=== PATIENT | male | born 2000 | race Caucasian/White ===

== ENCOUNTER 2022-02-24 21:49 | Emergency (ER) | payer OTHER, SELFPAY ==
--- NOTE | 2022-02-24 22:03 | CTR_ITS ---
PROCEDURE INFORMATION: Exam: CT Abdomen And Pelvis Without Contrast Exam date and time: 02/24/2022 10:15 PM Age: 21 years old Clinical indication: Other: Periumbilical pain with bleeding; Additional info: Abd pain around the umbilicus, with scant bleeding TECHNIQUE: Imaging protocol: Computed tomography of the abdomen and pelvis without contrast. Radiation optimization: All CT scans at this facility use at least one of these dose optimization techniques: automated exposure control; mA and/or kV adjustment per patient size (includes targeted exams where dose is matched to clinical indication); or iterative reconstruction. COMPARISON: No relevant prior studies available. RADIATION DOSE METRICS: Total DLP (mGy-cm): 1769.03 FINDINGS: Limitations: The absence of intravenous contrast lessens the sensitivity of this study for solid organ abnormalities. Lungs: Lung bases are clear. Liver: There is no focal abnormality within the liver. Gallbladder and bile ducts: The gallbladder is normal. Pancreas: The pancreas is normal. Spleen: The spleen is normal. Adrenal glands: Normal. No mass. Kidneys and ureters: The kidneys are normal. There is no evidence of hydronephrosis. There is no evidence of renal or ureteral calcifications. Stomach and bowel: There is no evidence of colitis/diverticulitis. There is no evidence of intestinal obstruction. Appendix: A normal appendix is identified. Intraperitoneal space: There is no evidence of free intraperitoneal fluid. Vasculature: The aorta is normal. Lymph nodes: There is no evidence of lymphadenopathy. Urinary bladder: Unremarkable as visualized. Reproductive: Unremarkable as visualized. Bones/joints: Unremarkable. No acute fracture. Soft tissues: There is skin thickening of the skin of the umbilicus which could represent some focal cellulitis. Correlation with the physical examination findings is suggested. There may be a tiny umbilical hernia containing only fat. Other findings: No abscess is identified. CT/CT abdomen pelvis wo con [id number] IMPRESSION: Question of cellulitis of the umbilicus. Otherwise negative exam.
--- NOTE | 2022-02-24 22:15 | ED_ITS ---
HPI - Abdominal Pain General: Chief Complaint: Abdominal Pain Stated Complaint: BLEEDING FROM [place] Time Seen by Provider: 02/24/22 22:00 Source: patient and EMS Mode of arrival: EMS Limitations: no limitations History of Present Illness: 21-year-old male states he has had umbilical hernia for months. He states he has been having some increased erythema and pain around along with discharge and some slight bleeding. He states pain currently is a 6 out of 10 denies any vomiting or diarrhea denies any worsening improving factors. Denies any radiation of his pain. Associated Symptoms: Denies chills, diarrhea, dysuria, fever(s), nausea and vomiting Review of Systems Const: Denies: fever(s), chills, body aches or change in appetite Eyes: Denies: blurry vision or eye discomfort ENMT: Denies: throat pain or dental pain Card: Denies: chest pain Resp: Denies: dyspnea GI: Reports: abdominal pain; Denies: nausea, vomiting or diarrhea : Denies: dysuria Musc: Denies: neck pain or back pain Skin/Breast: Denies: rash Neuro: Denies: headache(s) Psych: Denies: depression Marito/Lymph: Denies: easy bruising All/Imm: Denies: urticaria PFSH ED PFSH: Medical History (Updated 02/25/22 @ 00:36 by Nikki Stanford MD) No pertinent past medical history Social History (Updated 02/24/22 @ 22:22 by Nikki Stanford MD) Substance/Drug Use: never Physical Exam Const: COMMON NORMALS: no acute distress, patient oriented x3 and healthy appearing HENMT: COMMON NORMALS: normocephalic and atraumatic HEAD & SCALP: normocephalic and atraumatic Eye: COMMON NORMALS: Equal, round and reactive pupils present and EOMs intact bilaterally PUPIL: Yes Equal, round and reactive pupils present Neck/C-Spine: COMMON NORMALS: full ROM and supple Chest: COMMONS NORMALS: normal inspection of the chest and normal palpation of entire chest wall Resp: COMMON NORMALS: normal respiratory effort, No retractions, No use of accessory muscles and clear to auscultation bilaterally AUSCULTATION: clear to auscultation bilaterally Cardio: COMMON NORMALS: regular rate, regular rhythm and No murmurs present (Cardio) RATE: regular rate RHYTHM: regular rhythm GI: COMMON NORMALS: Soft to palpation, non-tender and no masses PALPATION: Yes Soft to palpation OTHER: Patient has a slight yellow discharge from his umbilicus that is foul-smelling some surrounding mild cellulitis Extremity: COMMON NORMALS: normal to inspection and full ROM Neuro: COMMON NORMALS: patient oriented x3, moves all extremities and no focal motor deficits Psych: COMMON NORMALS: mental status grossly normal, Normal thought process present and cooperative THOUGHT PROCESS: Normal thought process present Skin: COMMON NORMALS: no rashes or lesions noted and no wounds GENERAL SKIN EXAM: no rashes or lesions noted Course Vital Signs: Vital signs: Vital Signs Temperature 98.0 F 02/24/22 22:19 Pulse Rate 80 02/24/22 23:54 Respiratory Rate 18 02/24/22 23:54 Blood Pressure 129/82 02/24/22 23:54 Pulse Oximetry 96 02/24/22 23:54 MDM - Abdominal Pain Medical Decision Making Patient presents with cellulitis of his umbilicus we will start him on antibiotics he is stable for discharge he has no hernia noted on exam he is to follow-up with PCP and return if worsening. Lab Data : 02/24/22 22:30 02/24/22 22:30 Labs/Radiology: Radiology Impressions Abdomen/Pelvis CT 02/24/22 22:03 IMPRESSION: Question of cellulitis of the umbilicus. Otherwise negative exam. Laboratory Results WBC 12.5 10^3/uL (4.0-10.0) H 02/24/22 22:30 RBC 5.00 10^6/uL (4.1-5.3) 02/24/22 22:30 Hgb 14.4 g/dL (11.7-16.6) 02/24/22 22:30 Hct 42.2 % (42.0-52.0) 02/24/22 22:30 MCV 84.4 fl (80-94) 02/24/22 22:30 MCH 28.8 pg (28.0-34.0) 02/24/22 22:30 MCHC 34.1 g/dL (30.0-36.0) 02/24/22 22:30 RDW 13.0 % (12.1-15.1) 02/24/22 22:30 Plt Count 225 10^3/cmm (130-400) 02/24/22 22:30 MPV 9.8 fL (7.4-10.4) 02/24/22 22:30 Neut % (Auto) 57.1 % 02/24/22 22: Lymph % (Auto) 33.0 % 02/24/22 22: [place] % (Auto) 6.1 % 02/24/22 22: Eos % (Auto) 3.0 % 02/24/22 22: Baso % (Auto) 0.5 % 02/24/22: Neut # (Auto) 7.14 10^3/uL (1.8-7.7) 02/24/22: Lymph # (Auto) 4.1 10^3/uL (0.8-4.8) 02/24/22: [place] # (Auto) 0.8 10^3/uL (0.2-0.9) 02/24/22: Eos # (Auto) 0.4 10^3/uL (0.0-0.8) 02/24/22: Baso # (Auto) 0.1 10^3/uL (0.0-0.1) 02/24/22: Nucleated RBC % (auto) 0 % 02/24/22: Nucleated RBCs # 0.0 /100WBC 02/24/22: Sodium 138 mmol/L (136-145) 02/24/22: Potassium 3.7 mmol/L (3.5-5.1) 02/24/22: Chloride 102 mmol/L (98-107) 02/24/22 22: Carbon Dioxide 24 mmol/L (22-29) 02/24/22: Anion Gap 15.7 (5-19) 02/24/22: BUN 13 mg/dL (6-20) 02/24/22: Creatinine 0.7 mg/dL (0.7-1.2) 02/24/22: GFR Calculation 142.4 mL/min (90-130) H 02/24/22: Glucose 121 mg/dL (65-115) H 02/24/22: Calculated Osmolality 287 mOsm/kg (285-295) 06/23/22 22:30 Calcium 9.4 mg/dL (8.5-10.5) 02/24/22 22:30 Discharge Plan Discharge Patient Disposition: Home Clinical Impression: Cellulitis of umbilicus Condition: Stable Prescriptions: New Bactrim DS 800-160 mg tablet 1 tab PO BID 10 Days Qty: 20 0RF cephalexin 500 mg capsule 500 mg PO TID 7 Days Qty: 21 0RF Discharge Orders: Discharge ED (Routine); Ordered 02/25/22 Ordered By: Nikki Stanford Discharge Diet: Advance as tolerated Discharge Activity: Resume usual activity Patient Instructions: Cellulitis (ED) Coding Level of Care Code ED 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
[2022-02-24 22:19] VITALS: BP 147/71; PULSE 95; RESP 18; TEMP 36.7; O2SAT 100; BMI 59.2
[2022-02-24] MEDS: morphine 4 mg/mL SDV 1 mL IVP (22:32)
[2022-02-24] MEDS: ondansetron 2 mg/ML SDV 2 mL 4 MG IVP (22:32)
[2022-02-24 22:45] LABS: Basophils # 0.1 10^3/uL (0.0-0.1); Basophils % 0.5 %; Eosinophils # 0.4 10^3/uL (0.0-0.8); Hematocrit 42.2 % (42.0-52.0); Hemoglobin 14.4 g/dL (11.7-16.6); Lymphocytes # 4.1 10^3/uL (0.8-4.8); Mean Corpuscular HGB Conc 34.1 g/dL (30.0-36.0); Mean Corpuscular Hemoglobin 28.8 pg (28.0-34.0); Mean Corpuscular Volume 84.4 fl (80-94); Mean Platelet Volume 9.8 fL (7.4-10.4); Monocytes # 0.8 10^3/uL (0.2-0.9); Monocytes % 6.1 %; Neutrophils # 7.14 10^3/uL (1.8-7.7); Neutrophils % 57.1 %; Nucleated Red Blood Cells % 0 %; Platelet Count 225 10^3/cmm (130-400); White Blood Count 12.5 10^3/uL (4.0-10.0)
[2022-02-24 22:57] LABS: Anion Gap 15.7 (5-19); Blood Urea Nitrogen 13 mg/dL (6-20); Calcium 9.4 mg/dL (8.5-10.5); Carbon Dioxide 24 mmol/L (22-29); Chloride 102 mmol/L (98-107); Glomerular Filtration Rate 142.4 mL/min (90-130); Glucose 121 mg/dL (65-115); Osmolality Calculated 287 mOsm/kg (285-295); Potassium 3.7 mmol/L (3.5-5.1); Sodium 138 mmol/L (136-145)
[2022-02-24 23:54] VITALS: BP 129/82; PULSE 80; RESP 18; O2SAT 96
[2022-02-25 00:50] VITALS: BP 151/61; PULSE 94; RESP 18; O2SAT 98
== END 2022-02-25 00:51 | disposition home or self-care (01) ==
PROVIDERS: Emergency Provider Emergency Medicine
DX: L03.316 Cellulitis of umbilicus (principal)
CPT/HCPCS: 74176; 80048; 85025; 96374; 96375; 99284; J2270; J2405

== ENCOUNTER → 2022-04-08 14:46 | Outpatient (BNVA) | payer OTHER, SELFPAY | PROVIDERS: Visit Provider Emergency Medicine | DX: M25.561 Pain in right knee (principal) | CPT/HCPCS: 73562 ==

== ENCOUNTER → 2022-04-14 14:30 | Outpatient (BNVA) | payer OTHER, SELFPAY | PROVIDERS: Visit Provider Emergency Medicine | DX: Z01.89 Encounter for other specified special examinations (principal); Y99.0 Civilian activity done for income or pay | CPT/HCPCS: 80307 ==

== ENCOUNTER 2025-01-18 10:57 | Emergency (ER) | payer SELFPAY ==
[2025-01-18 11:03] VITALS: BP 169/82; PULSE 94; RESP 18; TEMP 36.7; O2SAT 98; BMI 54.8
--- NOTE | 2025-01-18 12:49 | XRR_ITS ---
PROCEDURE INFORMATION: Exam: XR Chest Exam date and time: 01/18/2025 1:06 PM Age: 24 years old Clinical indication: Cough and dyspnea; Dyspnea; Chronic cough x 9yrs-progressively worsening x 2yrs TECHNIQUE: Imaging protocol: Radiologic exam of the chest. Views: 1 view. COMPARISON: CT abdomen pelvis con [id number] 02/24/2022 10:15 PM FINDINGS: Lungs: Unremarkable. No consolidation. Pleural spaces: Unremarkable. No pleural effusion. No pneumothorax. Heart/Mediastinum: Unremarkable. No cardiomegaly. Bones/joints: No acute abnormality. XR/XR chest 1V portable [id number] IMPRESSION: No acute findings.
--- NOTE | 2025-01-18 12:49 | ECG_ITS ---
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 Measurements Intervals [place] Rate: 92 P: 34 LA: 142 QRS: 65 QRSD: 108 T: 21 QT: 361 QTc: 448 Interpretive Statements SINUS RHYTHM LOW QRS VOLTAGE IN PRECORDIAL LEADS [QRS DEFLECTION < 1.0 mV IN CHEST LEADS] No previous ECG available for comparison Electronically Signed On 01-19-2025 12:34:26 CDT by Conner Wolfe M.D. [email or web address]
[2025-01-18 13:06] VITALS: BP 133/79; PULSE 82; O2SAT 99
[2025-01-18 13:28] LABS: Basophils # 0.1 10^3/uL (0.0-0.1); Basophils % 0.7 %; Eosinophils # 0.3 10^3/uL (0.0-0.8); Eosinophils % 2.3 %; Hematocrit 43.7 % (37-53); Lymphocytes # 3.6 10^3/uL (0.8-4.8); Lymphocytes % 30.9 %; Mean Corpuscular HGB Conc 31.4 g/dL (30-55); Mean Corpuscular Hemoglobin 28.7 pg (27-33); Mean Corpuscular Volume 91.4 fl (82-101); Mean Platelet Volume 9.7 fL (7.4-10.4); Monocytes # 0.6 10^3/uL (0.2-0.9); Monocytes % 4.9 %; Neutrophils # 7.13 10^3/uL (1.8-7.7); Neutrophils % 60.9 %; Nucleated Red Blood Cells % 0 %; Platelet Count 217 10^3/cmm (157-399); Red Blood Count 4.78 10^6/uL (3.85-5.65); Red Cell Distribution Width 13.1 % (12.1-15.1); White Blood Count 11.71 10^3/uL (3.29-11.43)
[2025-01-18 13:30] VITALS: BP 127/90; PULSE 83; O2SAT 99
--- NOTE | 2025-01-18 13:41 | ED_ITS ---
HPI - Nausea/Vomiting/Diarrhea 2 General: Chief complaint: Nausea/Vomiting/Diarrhea Stated complaint: dizzy, n/v Time Seen by Provider: 01/18/25 12:45 History of Present Illness: 24 male presents emergency room with diz ziness nausea vomit moderately productive cough began last night some mild abdominal pain discomfort. No dysuria urgency or frequency. No rash no chest pain. Denies any mops his he has had discolored productive sputum. Associated nausea: Yes Associated symtoms: Reports nausea; Denies chest pain or dysuria Related Data Previous Rx's ?Medication ?Instructions ?Recorded albuterol sulfate 90 mcg/actuation 2 inh inhalation Q4 H PRN shortness 01/18/25 aerosol inhaler of breath or wheezing #18 gr ams doxycycline hyclate 100 mg capsule 100 mg PO BID 10 da ys #20 caps 01/18/25 promethazine 25 mg tablet 25 mg PO Q6H PRN nausea and 01/18/25 vomiting #20 tabs Allergies Allergy/AdvReac Type Severity Reaction Status Date / Time No Known Allergies Allergy Verified 04/08/22 14:07 Review of Systems 2 Const: Denies: fever(s) or chills Card: Denies: chest pain Resp: Reports: dyspnea, productive cough, wheezing and chest congestion GI: Reports: abdominal pain, nausea and vomiting; Denies: hematemesis, coffee ground emesis, hematochezia or melena : Denies: dysuria, urinary frequency or urinary urgency Musc: Denies: neck pain or back pain Skin/Breast: Denies: rash PFSH ED 2 PFSH: Medical History No pertinent past medical history Social History Smoking and tobacco/nicotine status: current every day tobacco/nicotine user Substance/Drug Use: never Physical Exam 2 Const: GENERAL APPEARANCE: cooperative ORIENTATION/CONSCIOUSNESS: Yes awake, Yes oriented to person, Yes oriented to place and Yes oriented to time HENMT: COMMON NORMALS: normocephalic, atraumatic and hearing grossly normal bilaterally HEAD & SCALP: normocephalic and atraumatic Resp: COMMON NORMALS: normal respiratory effort, No retractions, No use of accessory muscles and clear to auscultation bilaterally AUSCULTATION: clear to auscultation bilaterally Cardio: COMMON NORMALS: regular rate, regular rhythm and No murmurs present (Cardio) RATE: regular rate RHYTHM: regular rhythm GI: COMMON NORMALS: No hepatosplenomegaly present AUSCULTATION: Yes normoactive bowel sounds PALPATION: Yes Tenderness to palpation present (GI) (Mild diffuse), No Guarding due to palpation present (GI) and Yes No hepatosplenomegaly present Extremity: COMMON NORMALS: normal to inspection, capillary refill normal, no clubbing, cyanosis or edema, no calf tenderness and no pedal edema Neuro: SENSORIUM/ORIENTATION: Yes oriented to person, Yes oriented to place and Yes oriented to time Skin: COMMON NORMALS: no rashes or lesions noted GENERAL SKIN EXAM: no rashes or lesions noted Course 2 Vital Signs: Vital signs: Vital Signs Temperature 98.0 F 01/18/25 11:03 Pulse Rate 86 01/18/25 14:30 Respiratory Rate 18 01/18/25 11:03 Blood Pressure 145/105 01/18/25 14:30 Pulse Oximetry 99 01/18/25 14:30 Oxygen Delivery Me thod Room Air 01/18/25 11:03 MDM - Nausea/Vomiting/Diarrhea Medical Decision Making Viral upper respiratory infection. CT of the abdomen was negative he had some mild tenderness on exam, but no guarding or rebound. White count was mildly elevated discharged home supportive cares 7 productive cough for several days put him on doxycycline given promethazine to use as needed also given albuterol follow-up as needed Medical Records I reviewed the patient's medical records. Lab Data I reviewed the patient's lab results. 01/18/25 13:21 01/18/25 13:21 Radiology Impressions Chest X-Ray 01/18/25 12:49 IMPRESSION: No acute findings. Abdomen/Pelvis CT 01/18/25 13:45 IMPRESSION: 1. There is symmetric haziness of the fat far lateral aspect of the bilateral lower abdominal wall//flank just above the iliac crests extending out of the field of view due to the patient's body habitus suspect to be subcutaneous wall edema however mild cellulitis can not be excluded although unlikely given the symmetry. No fluid collection or abscess. 2. No additional acute abnormality. Laboratory Results WBC 11.71 10^3/uL (3.29-11.43) H 01/18/25 13:21 RBC 4.78 10^6/uL (3.85-5.65) 01/18/25 13:21 Hgb 13.70 g/dL (11.27-16.99) 01/18/25 13:21 Hct 43.7 % (37-53) 01/18/25 13:21 MCV 91.4 fl (82-101) 01/18/25 13:21 MCH 28.7 pg (27-33) 01/18/25 13:21 MCHC 31.4 g/dL (30-55) 01/18/25 13:21 RDW 13.1 % (12.1-15.1) 01/18/25 13:21 Plt Count 217 10^3/cmm (157-399) 01/18/25 13:21 MPV 9.7 fL (7.4-10.4) 01/18/25 13:21 Neut % (Auto) 60.9 % 01/18/25 13:21 Lymph % (Auto) 30.9 % 01/18/25 13:21 [place] % (Auto) 4.9 % 01/18/25 13:21 Eos % (Auto) 2.3 % 01/18/25 13:21 Baso % (Auto) 0.7 % 01/18/25 13:21 Neut # (Auto) 7.13 10^3/uL (1.8-7.7) 01/18/25 13:21 Lymph # (Auto) 3.6 10^3/uL (0.8-4.8) 01/18/25 13:21 [place] # (Auto) 0.6 10^3/uL (0.2-0.9) 01/18/25 13:21 Eos # (Auto) 0.3 10^3/uL (0.0-0.8) 01/18/25 13:21 Baso # (Auto) 0.1 10^3/uL (0.0-0.1) 01/18/25 13:21 Nucleated RBC % (auto) 0 % 01/18/25 13:21 Nucleated RBCs # 0.0 /100WBC 01/18/25 13:21 Sodium 138 mmol/L (136-145) 01/18/25 13:21 Potassium 4.2 mmol/L (3.5-5.1) 01/18/25 13:21 Chloride 100 mmol/L (98-107) 01/18/25 13:21 Carbon Dioxide 28 mmol/L (22-29) 01/18/25 13:21 Anion Gap 14.2 (5-19) 01/18/25 13:21 BUN 12 mg/dL (6-20) 01/18/25 13:21 Creatinine 0.7 mg/dL (0.7-1.2) 01/18/25 13:21 GFR Calculation 138.6 mL/min (90-130) H 01/18/25 13:21 Glucose 96 mg/dL (65-115) 01/18/25 13:21 Calculated Osmolality 286 mOsm/kg (285-295) 01/18/25 13:21 Calcium 9.3 mg/dL (8.5-10.5) 01/18/25 13:21 Total Bilirubin 0.3 mg/dL (0.15-1.2) 01/18/25 13:21 AST 18 U/L (0-40) 01/18/25 13:21 ALT 21 U/L (0-41) 01/18/25 13:21 Alkaline Phosphatase 83 U/L (40-130) 01/18/25 13:21 Total Protein 7.4 g/dL (6.6-8.7) 01/18/25 13:21 Albumin 3.9 g/dL (3.5-5.2) 01/18/25 13:21 Globulin 3.5 g/dL (1.3-4.6) 01/18/25 13:21 Urine Color Yellow (Yellow) 01/18/25 14:09 Urine Appearance Clear (CLEAR) 01/18/25 14:09 Urine pH 7.0 (5-7) 01/18/25 14:09 Ur Specific [place] 1.025 (1.005-1.030) 01/18/25 14:09 Urine Protein Negative (Negative) 01/18/25 14:09 Urine Glucose (UA) Negative (Normal) 01/18/25 14:09 Urine Ketones Negative (Negative) 01/18/25 14:09 Urine Blood Negative (Negative) 01/18/25 14:09 Urine Nitrate Negative (Negative) 01/18/25 14:09 Urine Bilirubin Negative (Negative) 01/18/25 14:09 Urine Urobilinogen 1.0 mg/dL (Negative) 01/18/25 14:09 Ur Leukocyte Esterase Trace (Negative) A 01/18/25 14:09 Urine RBC 0-2 /hpf (0-2) 01/18/25 14:09 Urine WBC 11-20 /hpf (0-5) H 01/18/25 14:09 Ur Squamous Epith Cells 6-10 /hpf (0-5) 01/18/25 14:09 Amorphous Sediment Not Reportable 01/18/25 14:09 Urine Bacteria Trace /hpf (NONE) 01/18/25 14:09 Hyaline Casts 2.05 /lpf 01/18/25 14:09 Influenza A (PCR) Negative (Negative) 01/18/25 14:09 Influenza Type B (PCR) Negative (Negative) 01/18/25 14:09 RSV (PCR) Negative (Negative) 01/18/25 14:09 SARS-CoV-2 (PCR) Negative (Negative) 01/18/25 14:09 All radiology interpretation(s) finalized by discharge Discharge Plan Discharge Patient Disposition: Home Clinical Impression: Bronchitis, Gastroenteritis Condition: Stable Prescriptions: New doxycycline hyclate 100 mg capsule 100 mg PO BID 10 Days Qty: 20 0RF promethazine 25 mg tablet 25 mg PO Q6H PRN (Reason: nausea and vomiting) Qty: 20 0RF albuterol sulfate 90 mcg/actuation HFA aerosol inhaler 2 inh INHALATION Q4H PRN (Reason: shortness of breath or wheezing) Qty: 18 0RF Discharge Orders: Discharge ED (Routine); Ordered 01/18/25 Ordered By: Sal Staples Discharge Diet: Usual diet Discharge Activity: Increase activity as tolerated Patient Instructions: Opioid Safety, Pain Management Activity Restrictions/Additional Instructions: Thank you for choosing [facility] [place] for your healthcare needs today. It is very important that you follow up as instructed or that you return to the Emergency Department should you have concerns or if your condition changes or worsens in any way. You were seen in the emergency room with complaints of productive cough as well as nausea vomiting and diarrhea. Your chest x-ray and CT of your abdomen did not show any significant acute findings your white count was very minimally elevated your other labs are unremarkable. 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
[2025-01-18 13:45] LABS: Alanine Aminotransferase 21 U/L (0-41); Albumin Level 3.9 g/dL (3.5-5.2); Alkaline Phosphatase 83 U/L (40-130); Anion Gap 14.2 (5-19); Aspartate Amino Transferase 18 U/L (0-40); Blood Urea Nitrogen 12 mg/dL (6-20); Calcium 9.3 mg/dL (8.5-10.5); Carbon Dioxide 28 mmol/L (22-29); Chloride 100 mmol/L (98-107); Globulin 3.5 g/dL (1.3-4.6); Glomerular Filtration Rate 138.6 mL/min (90-130); Glucose 96 mg/dL (65-115); Osmolality Calculated 286 mOsm/kg (285-295); Potassium 4.2 mmol/L (3.5-5.1); Sodium 138 mmol/L (136-145); Total Bilirubin 0.3 mg/dL (0.15-1.2); Total Protein 7.4 g/dL (6.6-8.7)
--- NOTE | 2025-01-18 13:45 | CTR_ITS ---
PROCEDURE INFORMATION: Exam: CT Abdomen And Pelvis Without Contrast Exam date and time: 01/18/2025 2:15 PM Age: 24 years old Clinical indication: Abdominal pain TECHNIQUE: Imaging protocol: Computed tomography of the abdomen and pelvis without contrast. Radiation optimization: All CT scans at this facility use at least one of these dose optimization techniques: automated exposure control; mA and/or kV adjustment per patient size (includes targeted exams where dose is matched to clinical indication); or iterative reconstruction. COMPARISON: CT abdomen pelvis con [id number] 02/24/2022 10:15 PM RADIATION DOSE METRICS: Total DLP (mGy-cm): 1376.48 FINDINGS: Liver: Unremarkable.No mass. Gallbladder and biliary ducts: Normal. No calcified stones. No ductal dilation. Pancreas: The pancreas is normal. Spleen: The spleen is normal. Adrenal glands: The adrenal glands are normal. Kidneys and ureters: There is no evidence of hydronephrosis. There is no evidence of renal calcifications. Stomach and bowel: There is no evidence of intestinal perforation or obstruction. There is no evidence of colitis/diverticulitis. Appendix: A normal appendix is identified. Intraperitoneal space: Unremarkable. No free air. No significant fluid collection. Vasculature: Unremarkable.No abdominal aortic aneurysm. Lymph nodes: Unremarkable.No enlarged lymph nodes. Urinary bladder: The bladder is decompressed. Reproductive: Unremarkable as visualized. Bones/joints: There is symmetric haziness of the fat far lateral aspect of the bilateral lower abdominal wall//flank just above the iliac crests extending out of the field of view due to the patient's body habitus suspect to be subcutaneous wall edema however mild cellulitis can not be excluded although unlikely given the symmetry. No fluid collection or abscess. Soft tissues: There is a fat-containing umbilical hernia. CT/CT abdomen pelvis con [id number] IMPRESSION: 1. There is symmetric haziness of the fat far lateral aspect of the bilateral lower abdominal wall//flank just above the iliac crests extending out of the field of view due to the patient's body habitus suspect to be subcutaneous wall edema however mild cellulitis can not be excluded although unlikely given the symmetry. No fluid collection or abscess. 2. No additional acute abnormality.
[2025-01-18 14:00] VITALS: BP 159/119; PULSE 104; O2SAT 99
[2025-01-18 14:21] LABS: Bilirubin Urine Negative (Negative); Blood Urine Negative (Negative); Glucose Urine UA Negative (Normal); Ketones Urine Negative (Negative); Leukocyte Esterase Urine Trace (Negative); Nitrate Urine Negative (Negative); Protein Urine Negative (Negative); Specific Gravity, Urine 1.025 (1.005-1.030); Urine Appearance Clear (CLEAR); Urine Color Yellow (Yellow)
[2025-01-18 14:23] LABS: Add Urine Microscopic? YES; Bacteria Urine Trace /hpf; Hyaline Casts Urine 2.05 /lpf; RBC Urine 0-2 /hpf (0-2)
[2025-01-18 14:30] VITALS: BP 145/105; PULSE 86; O2SAT 99
[2025-01-18 14:56] LABS: Influenza A NEGATIVE (Negative); Influenza B NEGATIVE (Negative); Respiratory Syncytial Virus Ce NEGATIVE (Negative); SARS-CoV-2 PCR NEGATIVE (Negative)
== END 2025-01-18 16:28 | disposition home or self-care (01) ==
PROVIDERS: Emergency Provider Family Medicine
DX: J40 Bronchitis, not specified as acute or chronic (principal); K52.9 Noninfective gastroenteritis and colitis, unspecified; Z11.52 Encounter for screening for COVID-19; Z72.0 Tobacco use
CPT/HCPCS: 71045; 74176; 80053; 81001; 85025; 87637; 93005; 99285